=== PATIENT | female | born 1955 | race Caucasian/White ===

== ENCOUNTER 2018-03-07 09:26 | Emergency (ER) | payer MEDICAID ==
[2018-03-07] MEDS ORDERED: Cyclobenzaprine 10 MG Tab PO ONE (09:27)
[2018-03-07] MEDS ORDERED: Ketorolac 10 MG Tab PO ONE (09:27)
--- NOTE | 2018-03-07 10:00 | EDM.PDOC ---
ED HPI GENERAL MEDICAL PROBLEM - General Chief Complaint: Back Pain or Injury Stated Complaint: back pain Time Seen by Provider: 03/07/18 09:59 Source of Information: Reports: Patient History Limitations: Reports: No Limitations - History of Present Illness INITIAL COMMENTS - FREE TEXT/NARRATIVE: Jelena is a 62 year old female who presents to the ED with c/o mid back pain/ muscle spasm. She reports starting around 9 pm last night she had sudden sharp pain to her mid back, worse on the right side. Does report that the pain radiates down her right leg at times. Denies numbness or tingling. She reports the pain down her leg also feels like a muscle spasm. She reports it feels like a bad muscle spasm. She denies any other symptoms. Denies chest pain, abdominal pain, shortness of breath, fever, chills, urinary symptoms, hematuria. Denies any history of kidney stones. She reports she tried Tylenol throughout the night , but this did not help the pain. She does report she has chronic back pain, but has never had pain like this. She reports she has mostly been lying on her back or stomach. Has not been walking much. She denies any loss of bowel or bladder. Denies any weakness in her legs. Onset Date: 03/06/18 Onset Time: 21:00 Duration: Constant Location: Reports: Back (mid) Quality: Reports: Other (spasm, sharp) Severity: Severe Improves with: Reports: None Worsens with: Reports: Movement Context: Reports: Activity Associated Symptoms: Denies: Confusion, Chest Pain, Cough, cough w sputum, Diaphoresis, Fever/Chills, Headaches, Loss of Appetite, Malaise, Nausea/Vomiting , Rash, Seizure, Shortness of Breath, Syncope, Weakness Treatments SALES DRIVER: Reports: Acetaminophen Right Middle Back Pain Score (Numeric/FACES): 7 - Related Data Allergies Allergy/AdvReac Type Severity Reaction Status Date / Time codeine Allergy Vomiting Verified 03/07/18 09:29 Home Meds: Home Meds Acetaminophen [Tylenol Arthritis Pain] 1,500 mg PO Q4H PRN 02/18/14 [History] Omeprazole 20 mg PO BID 02/18/14 [History] Losartan/Hydrochlorothiazide [Losartan-HCTZ 100-25 MG] 1 each PO DAILY 12/09/14 [History] Cyclobenzaprine [Flexeril] 10 mg PO Q8H #30 tablet 03/07/18 [Rx] Ketorolac Tromethamine 10 mg PO Q8HR PRN #20 tablet 03/07/18 [Rx] Past Medical History Cardiovascular History: Reports: Hypertension Respiratory History: Reports: Sleep Apnea Gastrointestinal History: Reports: GERD Endocrine/Metabolic History: Reports: Obesity/BMI 30+ - Past Surgical History GI Surgical History: Reports: Hernia, Abdominal Social & Family History - Family History Family Medical History: Noncontributory - Tobacco Use Smoking Status *Q: Never Smoker - Recreational Drug Use Recreational Drug Use: No ED ROS GENERAL - Review of Systems Review Of Systems: ROS reveals no pertinent complaints other than HPI. ED EXAM,LOWER BACK PAIN/INJURY - Physical Exam Exam: See Below Exam Limited By: No Limitations General Appearance: Alert, WD/WN, No Apparent Distress Back Exam: Decreased Range of Motion, Other (kyphosis, scoliosis). No: Paraspinal Tenderness, Vertebral Tenderness Extremities: Normal Inspection, Normal Range of Motion, Non-Tender, No Pedal Edema, Normal Capillary Refill Neurological: Alert, Normal Mood/Affect, Normal Dorsiflexion, CN II-XII Intact, Normal Plantar Flexion, Normal Gait, Normal Reflexes, No Motor/Sensory Deficits , Oriented x 3 Psychiatric: Normal Affect, Normal Mood Skin Exam: Warm, Dry, Intact, Normal Color, No Rash Course - Vital Signs Last Recorded V/S: Last Vital Signs Temp 97.8 F 03/07/18 09:26 Pulse 85 03/07/18 09:26 Resp 20 03/07/18 09:26 BP 154/82 H 03/07/18 09:42 Pulse Ox 98 03/07/18 09:26 - Orders/Labs/Meds Orders: Active Orders 24 hr Category Date Time Status Thoracolumbar 2V [CR] Stat Exams 03/07/18 09:38 Taken Meds: Medications Discontinued Medications Generic Name Dose Route Start Last Admin Trade Name Freq PRN Reason Stop Dose Admin Cyclobenzaprine HCl 1 packet 03/07/18 11:29 03/07/18 11:32 Take Home: Cyclobenzaprine 10 Mg, 4 Tab Pack PO 03/07/18 11:30 1 packet ONETIME ONE Administration Ketorolac Tromethamine 1 packet 03/07/18 11:29 03/07/18 11:32 Take Home: Ketorolac 10 Mg, 4 Tab Pack PO 03/07/18 11:30 1 packet ONETIME ONE Administration Orphenadrine Citrate 60 mg 03/07/18 10:30 Norflex IM Q12H KURT Orphenadrine Citrate 60 mg 03/07/18 10:26 03/07/18 10:30 Norflex IM 03/07/18 10:27 60 mg ONETIME ONE Administration - Re-Assessments/Exams Free Text/Narrative Re-Assessment/Exam: Xrays on thoracolumbar show 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 There is severe multilevel degenerative changes with kyphosis of the lower thoracic spine. No evidence of acute findings or fracture seen. Departure - Departure Time of Disposition: 11:29 Disposition: Home, Self-Care 01 Condition: Fair Clinical Impression: Spasm of thoracolumbar muscle - Discharge Information Prescriptions: Ketorolac Tromethamine 10 mg PO Q8HR PRN #20 tablet PRN Reason: Pain Cyclobenzaprine [Flexeril] 10 mg PO Q8H #30 tablet Instructions: Muscle Cramps and Spasms, [id number], Chronic Back Pain Referrals: Suresh Deras MD [Primary Care Provider] - Forms: ED Department Discharge Additional Instructions: Toradol every 8 hours as needed for pain Flexeril every 8 hours as needed for muscle spasm Apply heat to affected area. May also alternate with ice. MRI of thoracic spine scheduled for March 23 at 9:45 am. Will notify you of MRI results once completed Strongly encourage diet and exercise for weight loss to alleviate back pain Follow up if back pain worsens or is not controlled with pain medications - My Orders Last 24 Hours: My Active Orders 03/07/18 09:38 Thoracolumbar 2V [CR] Stat - Assessment/Plan Last 24 Hours: My Active Orders 03/07/18 09:38 Thoracolumbar 2V [CR] Stat
[2018-03-07] MEDS ORDERED: Take Home: Ketorolac 10 MG Tab, 4 Tab Pack PO ONE (11:29)
[2018-03-07] MEDS ORDERED: Take Home: Cyclobenzaprine 10 MG Tab, 4 Tab Pack PO ONE (11:29)
[2018-03-07 14:16] VITALS: BP 154/82
== END 2018-03-07 12:15 | disposition home or self-care (01) ==
LOC: CC.ED 09:26
DX: M62.830 Muscle spasm of back (principal); I10 Essential (primary) hypertension; K21.9 Gastro-esophageal reflux disease without esophagitis; Z88.5 Allergy status to narcotic agent; Z79.899 Other long term (current) drug therapy
CPT/HCPCS: 72080; 96372; 99283; A9270; J2360

== ENCOUNTER → 2018-11-04 | Day surgery (SDC) | payer MEDICAID ==
[~2018-11-04] MED LIST: Dexamethasone 4 MG/ML SDV IV ONE; Glycopyrrolate 0.2 MG/ML SDV IVPUSH ONE; Neostigmine Methylsulfate 10 MG/10 ML MDV IV ONE; Ondansetron 4 MG/2 ML SDV IV ONE; Ondansetron 4 MG/2 ML SDV IVPUSH PRN; Propofol 200 MG/20 ML SDV IV ONE; Sodium Chloride 0.9% 10 ML Syringe FLUSH PRN; ceFAZolin 1 GM Vial IV ONE; fentaNYL 100 MCG/2 ML SDV IV ONE
[2018-11-04] MEDS: Lactated Ringers 1,000 ML IV SCH ×2 (08:50→13:09)
--- NOTE | 2018-11-04 15:41 | OR ---
DATE OF OPERATION: 11/04/2018 PREOPERATIVE DIAGNOSIS: 1. CHRONICALLY INFECTED WITH NECROSIS, UMBILICAL SKIN. 2. LARGE UMBILICAL HERNIA. POSTOPERATIVE DIAGNOSIS: 1. CHRONICALLY INFECTED WITH NECROSIS, UMBILICAL SKIN. 2. LARGE UMBILICAL HERNIA. SURGEON: Adal Thompson MD PROCEDURE: WIDE LOCAL EXCISION OF UMBILICAL SKIN AND REPAIR OF UMBILICAL HERNIA. ANESTHESIA: General. ESTIMATED BLOOD LOSS: Minimum. SPECIMEN: Umbilical hernia sac and skin. 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 Multiple maneuvers and treatments have been done preoperatively over the last 6 months to improve this and she still has chronic drainage and obvious necrosis of some of the skin. Due to her obesity and the fact of the umbilicus being contaminated, I discussed with her the plan to excise this necrotic skin area and then repair the umbilical hernia. DESCRIPTION OF PROCEDURE: After adequate preparation, an elliptical incision was made around the umbilicus. This was carried down into the subcutaneous tissue. This was then taken all the way down to the fascia where the hernia was protruding through about a 2 cm opening. The umbilical hernia sac was dissected free from the surrounding subcutaneous tissue and then the skin of the overlying umbilicus was detached from the hernia sac. The hernia sac was then opened. I was not able to reduce this without opening the sac and the sac was then taken off the contents, which contained only omentum. Hemostasis was controlled. The omentum was reduced back into the peritoneal cavity and the defect closed by interrupted 0 Prolene sutures, reinforced by double-stranded #1 PDS suture. I did not use mesh in this hernia repair as the defect was only 2 cm and I was concerned with contamination secondary to the umbilical necrosis and chronic infection and as previously thought this might have been a ventral hernia, was difficult to locate secondary to her size, but this turns out to be an umbilical hernia, not a ventral hernia. The omental contents were reduced adequately and the wound closed sufficiently. The cavity was irrigated with saline and cleaned up. Hemostasis was secured. The subcutaneous tissue was closed with 0 Vicryl sutures and 4-0 Vicryl in cuticular for the skin. The patient tolerated the procedure well. ABIMBOLA/HEYDI /[id number]
[2018-11-04] MEDS: Acetaminophen/oxyCODONE 325-5 MG Tab PO PRN ×2 (16:04→19:53)
[2018-11-05] MEDS: Acetaminophen/oxyCODONE 325-5 MG Tab PO PRN ×2 (00:27→08:13)
[2018-11-05 07:56] VITALS: BP 150/69
--- NOTE | 2018-11-05 08:54 | PCM.SN ---
- Free Text/Narrative Note: Stable POD #1. Pain well controlled with PO meds. Wound clean and dry. PO diet tolerated. Ambulated well. DC instructions given. Will place on Keflex for a week and Percocet for pain (#15) given. FU in my clinic if needed. Resume home meds and activity. Can discharge now.
== END | disposition home or self-care (01) ==
LOC: CC.SDS 08:02
PROVIDERS: ATTEND Surgery
DX: K42.1 Umbilical hernia with gangrene (principal); M95.8 Other specified acquired deformities of musculoskeletal system; I10 Essential (primary) hypertension; E78.5 Hyperlipidemia, unspecified; E66.01 Morbid (severe) obesity due to excess calories; Z68.43 Body mass index [BMI] 50.0-59.9, adult; J18.9 Pneumonia, unspecified organism; K21.9 Gastro-esophageal reflux disease without esophagitis; Z87.891 Personal history of nicotine dependence; Z79.899 Other long term (current) drug therapy; Z88.8 Allergy status to other drugs, medicaments and biological substances; Z88.5 Allergy status to narcotic agent; Z88.1 Allergy status to other antibiotic agents
CPT/HCPCS: A9270-GY; J0690; J1100; J2405; J2704; J2710; J3010; J3490; J7120

== ENCOUNTER 2018-11-08 15:32 | Observation (INO) | payer MEDICAID ==
[2018-11-08 16:06] LABS: CHLORIDE,CL 98 mEq/L (98-106); SODIUM,NA 140 mEq/L (136-145)
[2018-11-08] MEDS ORDERED: Sodium Chloride 0.9% 10 ML Syringe FLUSH PRN (16:42)
[2018-11-08] MEDS ORDERED: Docusate Sodium 100 MG Cap PO PRN (16:42)
[2018-11-08] MEDS ORDERED: Ondansetron 4 MG Tab.DIS PO PRN (16:42)
[2018-11-08] MEDS ORDERED: Enoxaparin 40 MG/0.4 ML Syringe SUBCUT SCH (16:45)
[2018-11-08] MEDS ORDERED: Cyclobenzaprine 10 MG Tab PO PRN (17:27)
[2018-11-08] MEDS ORDERED: ALENDRONATE SODIUM 70 MG PO SCH (17:30)
[2018-11-08] MEDS: Sodium Chloride 0.45% with KCl 1,000 ML IV SCH (17:33)
[2018-11-08] MEDS: OMEPRAZOLE 20 MG PO SCH (19:46)
[2018-11-08] MEDS: Albuterol/Ipratropium 3.0-0.5 MG/3 ML Neb Soln NEB SCH (19:50)
[2018-11-08] MEDS ORDERED: ROSUVASTATIN CALCIUM 10 MG PO SCH (20:00)
[2018-11-08] MEDS: Ibuprofen 200 MG Tab PO PRN (20:16)
[2018-11-08] MEDS: Acetaminophen 325 MG Tab PO PRN (20:16)
[2018-11-09] MEDS: Acetaminophen 325 MG Tab PO PRN (06:31)
[2018-11-09] MEDS: Ibuprofen 200 MG Tab PO PRN (06:31)
[2018-11-09] MEDS: Sodium Chloride 0.45% with KCl 1,000 ML IV SCH (07:24)
[2018-11-09] MEDS ORDERED: Psyllium Husk Powder Sugar Free 5.85 GM Packet PO SCH (08:00)
[2018-11-09] MEDS ORDERED: LOSARTAN PO SCH (08:00)
[2018-11-09] MEDS ORDERED: DILTIAZEM 120 MG PO SCH (08:00)
[2018-11-09] MEDS ORDERED: HYDROCHLOROTHIAZIDE PO SCH (08:00)
[2018-11-09] MEDS: Albuterol/Ipratropium 3.0-0.5 MG/3 ML Neb Soln NEB SCH (08:05)
[2018-11-09] MEDS: OMEPRAZOLE 20 MG PO SCH (08:05)
[2018-11-09 08:07] VITALS: BP 148/85
--- NOTE | 2018-11-09 22:46 | PCM.DCSUM1 ---
Discharge Summary - Hospital Course Free Text/Narrative:: Patient presented to clinic for 4 day history of increased shortness of breath, cough and wheezing. Had outpatient umbilical hernia last week by Dr. Thompson. Running low grade temps. Oxygen sats noted in low 90s. Wheezing noted throughout on exam. Chest xray done by Dr. Deras did show post op atelectasis. Labs done, WBC 7.4, CRP 1.8. ProBNP normal. Admitted for incentive spirometry , oxygen as needed. Obtain CTA of chest to rule out PE. Nebs as directed. Diagnosis: Stroke: No Modified Arabella Scale: No Symptoms at All Modified Barrow Scale Score: 0 - Discharge Data Discharge Date: 11/09/18 Discharge Disposition: Home, Self-Care 01 Condition: Good - Patient Summary/Data Complications: none Hospital Course: Patient doing well. Does continue to feel short of breath with exertion. Staff had noted improvement of her breathing after use of incentive spirometry. Does have occasional expiratory wheezing but was also noted on documentation prior to surgery. CTA of chest was done was negative for PE. Patient relates did not sleep well at hospital, does feel she could continue with nebs and IS at home. Ambulation as tolerated. Sats have remained above 90%. Afebrile. Will continue with IS at home, nebs QID for one week, continue Zithromax 500 mg daily for 5 day. Follow up with Arelis next week. - Patient Instructions Diet: Usual Diet as Tolerated Activity: As Tolerated - Discharge Plan *PRESCRIPTION DRUG MONITORING PROGRAM REVIEWED*: No *COPY OF PRESCRIPTION DRUG MONITORING REPORT IN PATIENT TONY: No Prescriptions/Med Rec: Albuterol/Ipratropium [DuoNeb 3.0-0.5 MG/3 ML] 3 ml NEB QIDRT #28 neb Azithromycin [Zithromax] 500 mg PO DAILY #5 tab Home Medications: Home Meds Omeprazole 20 mg PO BID 02/18/14 [History] Losartan/Hydrochlorothiazide [Losartan-HCTZ 100-25 MG] 1 each PO DAILY 12/09/14 [History] Acetaminophen [Arthritis Pain Relief] 650 mg PO Q4H PRN 11/04/18 [History] Alendronate Sodium 70 mg PO MO 11/04/18 [History] Calcium Carb & Citrate/Vit D3 [Citracal + D ER] 2 each PO BID 11/04/18 [History] Cholecalciferol (Vitamin D3) [Vitamin D3] 6,000 unit PO DAILY 11/04/18 [History] Cyclobenzaprine [Flexeril] 10 mg PO Q8H PRN 11/04/18 [History] Diltiazem HCl [Cartia Xt] 120 mg PO DAILY 11/04/18 [History] Ibuprofen [Advil] 200 mg PO Q4H PRN 11/04/18 [History] Magnesium 250 mg PO DAILY 11/04/18 [History] Psyllium Husk [Metamucil] 1 scoop PO DAILY 11/04/18 [History] Rosuvastatin Calcium 10 mg PO BEDTIME 11/04/18 [History] Vitamin B Complex 1 each PO DAILY 11/04/18 [History] Albuterol/Ipratropium [DuoNeb 3.0-0.5 MG/3 ML] 3 ml NEB QIDRT #28 neb 11/09/18 [ Rx] Azithromycin [Zithromax] 500 mg PO DAILY #5 tab 11/09/18 [Rx] Referrals: Arelis Mclaughlin [employer] SEATING PRESS OPERATOR [Primary Care Provider] - (Follow up with Arelis in one week) - Discharge Summary/Plan Comment DC Time >30 min.: No - General Info Date of Service: 11/09/18 Admission Dx/Problem (Free Text: Shortness of Breath Post OP Atelectasis Functional Status: Reports: Pain Controlled, Tolerating Diet, Ambulating - Review of Systems General: Reports: Weakness HEENT: Reports: No Symptoms Pulmonary: Reports: Shortness of Breath, Cough, Wheezing Cardiovascular: Denies: Chest Pain Gastrointestinal: Denies: Abdominal Pain, Nausea, Vomiting Genitourinary: Reports: No Symptoms Musculoskeletal: Reports: No Symptoms Neurological: Reports: No Symptoms - Patient Data Vitals - Most Recent: Last Vital Signs Temp 98.3 F 11/09/18 08:00 Pulse 83 11/09/18 08:05 Resp 18 11/09/18 08:00 BP 148/85 H 11/09/18 08:05 Pulse Ox 95 11/09/18 08:00 Weight - Most Recent: 276 lb 9.6 oz I&O - Last 24 hours: Intake & Output 11/09/18 11/09/18 11/09/18 06:59 14:59 22:59 Intake Total 1000 Balance 1000 Lab Results - Last 24 hrs: Laboratory Results - last 24 hr 11/08/18 11/09/18 Range/Units 15:39 07:05 Sodium 141 (136-145) mEq/L Potassium 3.9 (3.5-5.0) mEq/L Chloride 100 (98-106) mEq/L Carbon Dioxide 31 (21-32) mmol/L BUN 13 (7-18) mg/dL Creatinine 1.1 H (0.6-1.0) mg/dL Est Cr Clr Drug Dosing 38.58 mL/min Estimated GFR (MDRD) 50 L (>=60) mL/min Glucose 124 H (75-99) mg/dL Calcium 8.8 (8.4-10.1) mg/dL Urine Color Yellow (YELLOW) Urine Appearance Clear (CLEAR) Urine pH 5.5 (4.5-8.0) Ur Specific Ke[place] <= 1.005 (1.003-1.020) Urine Protein Negative (NEGATIVE) mg/dL Urine Glucose (UA) Negative (NEGATIVE) mg/dL Urine Ketones Negative (NEGATIVE) mg/dL Urine Occult Blood Negative (NEGATIVE) Urine Nitrite Negative (NEGATIVE) Urine Bilirubin Negative (NEGATIVE) Urine Urobilinogen 0.2 (0.2-1.0) EU/dL Ur Leukocyte Esterase Moderate H (NEGATIVE) Urine RBC Not seen (0-5) /HPF Urine WBC 10-20 H (0-5) /HPF Ur Squamous Epith Cells Moderate H (NOT SEEN) /HPF Urine Bacteria Occasional H (NOT SEEN) /HPF Med Orders - Current: Current Medications Discontinued Medications Acetaminophen (Tylenol) 650 mg PO Q4H PRN PRN Reason: Pain Last Admin: 11/09/18 06:31 Dose: 650 mg Albuterol/Ipratropium (Duoneb 3.0-0.5 Mg/3 Ml) 3 ml NEB QIDRT [facility] [place] Last Admin: 11/09/18 08:05 Dose: 3 ml Cyclobenzaprine HCl (Flexeril) 10 mg PO Q8H PRN PRN Reason: Muscle Spasm Diltiazem HCl (Cardizem Cd) 120 mg PO DAILY [facility] [place] Last Admin: 11/09/18 08:05 Dose: 120 mg Docusate Sodium (Colace) 100 mg PO BID PRN PRN Reason: Constipation Enoxaparin Sodium (Lovenox) 40 mg SUBCUT 1600 [facility] [place] Last Admin: 11/08/18 17:28 Dose: 40 mg Potassium Chloride/Sodium Chloride (1/2 Ns With 20 Meq Kcl) 1,000 mls @ 75 mls/ hr IV ASDIRECTED [facility] [place] Last Admin: 11/09/18 07:24 Dose: 75 mls/hr Ibuprofen (Motrin) 200 mg PO Q4H PRN PRN Reason: Pain/Fever Last Admin: 11/09/18 06:31 Dose: 200 mg Magnesium Oxide (Magnesium Oxide) 250 mg PO DAILY [facility] [place] Last Admin: 11/09/18 08:08 Dose: 250 mg Non-Formulary Medication (Alendronate Sodium [Alendronate Sodium]) 70 mg PO MO [facility] [place] Ptom Losartan/Hydrochlorothiazide 100-25 Mg 1 each PO DAILY [facility] [place] Last Admin: 11/09/18 08:04 Dose: 1 each Ptom Omeprazole (20 Mg) 20 mg PO BID [facility] [place] Last Admin: 11/09/18 08:05 Dose: 20 mg Ptom Rosuvastatin Calcium 10 Mg 10 mg PO BEDTIME [facility] [place] Last Admin: 11/08/18 19:46 Dose: 10 mg Ondansetron HCl (Zofran Odt) 8 mg PO Q6H PRN PRN Reason: nausea, able to take PO Psyllium Husk (Metamucil Sugar Free) 1 pkt PO DAILY [facility] [place] Last Admin: 11/09/18 08:08 Dose: 1 pkt Sodium Chloride (Saline Flush) 10 ml FLUSH ASDIRECTED PRN PRN Reason: Keep Vein Open - Exam General: Reports: Alert, Oriented HEENT: Reports: Mucous Membr. Moist/[place] Neck: Reports: Supple Lungs: Reports: Decreased Breath Sounds, Wheezing (improves with nebulizer treatment) Cardiovascular: Reports: Regular Rate, Regular Rhythm GI/Abdominal Exam: Normal Bowel Sounds, Soft, Non-Tender Skin: Reports: Warm, Dry Neurological: Reports: No New Focal Deficit
== END 2018-11-09 11:10 | disposition home or self-care (01) ==
LOC: CC.FCMC 15:32 → CC.MS 15:32 → UNDOADMOB 16:15 → CC.MS 16:42
PROVIDERS: ADMIT Family Medicine; ATTEND Family Medicine
DX: J95.89 Other postprocedural complications and disorders of respiratory system, not elsewhere classified (principal); J98.11 Atelectasis; I10 Essential (primary) hypertension; E66.01 Morbid (severe) obesity due to excess calories; Z68.43 Body mass index [BMI] 50.0-59.9, adult; Z79.899 Other long term (current) drug therapy; Z88.8 Allergy status to other drugs, medicaments and biological substances; Z88.1 Allergy status to other antibiotic agents
CPT/HCPCS: 36415; 71046; 71275; 80048; 80053; 81001; 83735; 83880; 84484; 85025; 86140; 87086; 87804; 93005; 94640; 96360; 96361; 96372; A9270; G0378; J1650; J3480; Q9967; J7620-GY

== ENCOUNTER → 2022-03-06 | Day surgery (SDC) | payer MEDICARE, MEDICAID ==
[~2022-03-06] MED LIST changes: -Dexamethasone 4 MG/ML SDV IV ONE; -Glycopyrrolate 0.2 MG/ML SDV IVPUSH ONE; +Ketamine 200 MG/20 ML MDV ONE; +Lactated Ringers 1,000 ML IV SCH; +Metoclopramide 10 MG/2 ML SDV ONE; -Neostigmine Methylsulfate 10 MG/10 ML MDV IV ONE; -Ondansetron 4 MG/2 ML SDV IV ONE; -Ondansetron 4 MG/2 ML SDV IVPUSH PRN; +Phenylephrine 1% 10 MG/ML SDV ONE; -Propofol 200 MG/20 ML SDV IV ONE; +Propofol 200 MG/20 ML SDV ONE; -Sodium Chloride 0.9% 10 ML Syringe FLUSH PRN; -ceFAZolin 1 GM Vial IV ONE; -fentaNYL 100 MCG/2 ML SDV IV ONE; +fentaNYL 100 MCG/2 ML SDV ONE
[2022-03-06] MEDS: Lactated Ringers 1,000 ML IV SCH (09:20)
[2022-03-06 11:17] VITALS: PULSE 70
[2022-03-06 11:20] VITALS: BP 155/84
== END ==
LOC: CC.SDS 09:05
PROVIDERS: ATTEND Surgery
DX: K57.31 Diverticulosis of large intestine without perforation or abscess with bleeding (principal); K64.8 Other hemorrhoids; R13.10 Dysphagia, unspecified; K44.9 Diaphragmatic hernia without obstruction or gangrene; D64.9 Anemia, unspecified; K21.9 Gastro-esophageal reflux disease without esophagitis; E78.5 Hyperlipidemia, unspecified; I10 Essential (primary) hypertension; E66.01 Morbid (severe) obesity due to excess calories; G47.33 Obstructive sleep apnea (adult) (pediatric); E11.9 Type 2 diabetes mellitus without complications; M85.80 Other specified disorders of bone density and structure, unspecified site; Z88.8 Allergy status to other drugs, medicaments and biological substances; Z88.5 Allergy status to narcotic agent; Z79.899 Other long term (current) drug therapy; Z87.891 Personal history of nicotine dependence; Z68.43 Body mass index [BMI] 50.0-59.9, adult
CPT/HCPCS: 82947; J2370; J2704; J2765; J3010; J7120

== ENCOUNTER 2023-04-29 08:31 | Inpatient (IN) | payer MEDICARE, MEDICAID ==
[2023-04-29 09:21] LABS: BASOPHILS ABSOLUTE AUTO 0.01 10^3/uL (0.00-0.50); BASOPHILS PERCENT AUTO 0.1 % (0-1); EOSINOPHILS ABSOLUTE AUTO 0.01 10^3/uL (0.00-1.50); EOSINOPHILS PERCENT AUTO 0.1 % (0-6); HEMATOCRIT 36.5 % (37.0-47.0); HEMOGLOBIN 12.4 g/dL (12.0-16.0); IMMATURE GRAN ABSOLUTE AUTO 0.01 10^3/uL (0.00-0.49); IMMATURE GRAN PERCENT AUTO 0.1 % (0.0-4.9); LYMPHOCYTES ABSOLUTE AUTO 1.84 10^3/uL (0.60-5.00); LYMPHOCYTES PERCENT AUTO 25.3 % (24-44); MEAN CORPUSCULAR HEMOGLOBIN 27.4 pg (27.0-32.0); MEAN CORPUSCULAR VOLUME 80.8 fL (83.0-97.0); MONOCYTES ABSOLUTE AUTO 0.56 10^3/uL (0.00-1.50); MONOCYTES PERCENT AUTO 7.7 % (0-10); NEUTROPHILS ABSOLUTE AUTO 4.85 x10^3/uL (1.80-8.00); NEUTROPHILS PERCENT AUTO 66.7 % (41-71); PLATELET COUNT,PLT 253 10^3/uL (150-400); RED BLOOD CELL COUNT 4.52 x10^6/uL (4.00-5.50); WHITE BLOOD CELL COUNT,WBC 7.3 10^3/uL (4.0-11.0)
[2023-04-29 09:34] LABS: ALBUMIN 3.6 g/dL (3.4-5.0); BILIRUBIN TOTAL 0.4 mg/dL (0.0-1.0); EST CRCL DRUG DOSING (CG) 39.75 mL/min; POTASSIUM,K 3.2 mEq/L (3.5-5.0); PROTEIN TOTAL,TP 7.7 g/dL (6.4-8.2)
[2023-04-29 09:36] LABS: CALCIUM 6.9 mg/dL (8.4-10.1)
[2023-04-29 10:14] LABS: MAGNESIUM 0.5 mg/dL (1.8-2.4); TSH ULTRASENSITIVE 3.64 uIU/mL (0.36-5.60)
[2023-04-29] MEDS ORDERED: Potassium Chloride 10 MEQ Tab.ER PO ONE (11:10)
[2023-04-29] MEDS ORDERED: Albuterol/Ipratropium 3.0-0.5 MG/3 ML Neb Soln NEB PRN (11:10)
[2023-04-29] MEDS ORDERED: Ondansetron 4 MG/2 ML SDV IV PRN (11:18)
[2023-04-29] MEDS ORDERED: Magnesium Sulfate/Water 4 GM in Premix Bag 1 BAG IV ONE (11:18)
[2023-04-29] MEDS ORDERED: Calcium Gluconate 1 GM in Sodium Chloride 0.9% 100 ML IV STA (11:18)
[2023-04-29] MEDS ORDERED: Sodium Chloride 0.9% 10 ML Syringe FLUSH PRN (11:18)
[2023-04-29] MEDS: Sodium Chloride 0.9% 1,000 ML IV SCH ×2 (11:38→19:59)
[2023-04-29 17:16] LABS: CALCIUM 7.2 mg/dL (8.4-10.1); EST CRCL DRUG DOSING (CG) 39.75 mL/min; POTASSIUM,K 3.7 mEq/L (3.5-5.0)
[2023-04-29] MEDS: Carvedilol 12.5 MG Tab PO SCH (17:26)
[2023-04-29] MEDS: Calcium Carbonate/Vitamin D3 1250 MG-5 MCG Tab PO SCH (17:27)
[2023-04-29] MEDS: metFORMIN 500 MG Tab PO SCH (17:27)
[2023-04-29] MEDS: Enoxaparin 40 MG/0.4 ML Syringe SUBCUT SCH (19:03)
[2023-04-29] MEDS: atorvaSTATin 20 MG Tab PO SCH (19:03)
[2023-04-29] MEDS: Acetaminophen 325 MG Tab PO PRN (19:36)
[2023-04-29] MEDS: Ondansetron 4 MG Tab.DIS PO PRN (19:59)
[2023-04-29] MEDS ORDERED: Simvastatin 40 MG Tab PO SCH (20:00)
[2023-04-30] MEDS: Pantoprazole 40 MG Tab.CR PO SCH (06:26)
[2023-04-30 07:07] LABS: BASOPHILS ABSOLUTE AUTO 0.02 10^3/uL (0.00-0.50); BASOPHILS PERCENT AUTO 0.3 % (0-1); EOSINOPHILS ABSOLUTE AUTO 0.01 10^3/uL (0.00-1.50); EOSINOPHILS PERCENT AUTO 0.1 % (0-6); HEMATOCRIT 35.9 % (37.0-47.0); HEMOGLOBIN 11.9 g/dL (12.0-16.0); IMMATURE GRAN ABSOLUTE AUTO 0.01 10^3/uL (0.00-0.49); IMMATURE GRAN PERCENT AUTO 0.1 % (0.0-4.9); LYMPHOCYTES ABSOLUTE AUTO 1.74 10^3/uL (0.60-5.00); LYMPHOCYTES PERCENT AUTO 25.1 % (24-44); MEAN CORPUSCULAR HEMOGLOBIN 27.2 pg (27.0-32.0); MEAN CORPUSCULAR HGB CONC 33.1 g/dL (32.0-36.0); MEAN CORPUSCULAR VOLUME 82.2 fL (83.0-97.0); MONOCYTES ABSOLUTE AUTO 0.65 10^3/uL (0.00-1.50); MONOCYTES PERCENT AUTO 9.4 % (0-10); PLATELET COUNT,PLT 239 10^3/uL (150-400); RED BLOOD CELL COUNT 4.37 x10^6/uL (4.00-5.50); WHITE BLOOD CELL COUNT,WBC 6.9 10^3/uL (4.0-11.0)
[2023-04-30] MEDS: Acetaminophen 325 MG Tab PO PRN ×2 (07:11→13:07)
[2023-04-30] MEDS: Ondansetron 4 MG Tab.DIS PO PRN (07:11)
[2023-04-30] MEDS: Sodium Chloride 0.9% 1,000 ML IV SCH (07:13)
[2023-04-30] MEDS: Carvedilol 12.5 MG Tab PO SCH ×2 (07:42→17:24)
[2023-04-30] MEDS: Vitamin B Complex Cap PO SCH (07:43)
[2023-04-30] MEDS: Cholecalciferol (Vitamin D3) 5,000 UNIT Tab PO SCH (07:43)
[2023-04-30] MEDS: metFORMIN 500 MG Tab PO SCH ×2 (07:43→17:24)
[2023-04-30] MEDS: Losartan 100 MG Tab PO SCH (07:43)
[2023-04-30] MEDS: Hydrochlorothiazide 25 MG Tab PO SCH (07:43)
[2023-04-30] MEDS: Calcium Carbonate/Vitamin D3 1250 MG-5 MCG Tab PO SCH ×2 (07:44→17:24)
[2023-04-30 07:47] LABS: CALCIUM 7.6 mg/dL (8.4-10.1); CREATININE 0.8 mg/dL (0.6-1.0); EST CRCL DRUG DOSING (CG) 49.69 mL/min; MAGNESIUM 1.6 mg/dL (1.8-2.4); POTASSIUM,K 3.5 mEq/L (3.5-5.0)
[2023-04-30] MEDS ORDERED: Psyllium Husk Powder Sugar Free 5.85 GM Packet PO SCH (08:00)
[2023-04-30] MEDS ORDERED: Magnesium Sulfate/Water 2 GM in Premix Bag 1 BAG IV ONE (09:18)
[2023-04-30] MEDS: atorvaSTATin 20 MG Tab PO SCH (19:56)
[2023-04-30] MEDS: Enoxaparin 40 MG/0.4 ML Syringe SUBCUT SCH (19:56)
[2023-05-01] MEDS: Sodium Chloride 0.9% 1,000 ML IV SCH (06:09)
[2023-05-01] MEDS: Pantoprazole 40 MG Tab.CR PO SCH (06:12)
[2023-05-01 07:29] LABS: BASOPHILS ABSOLUTE AUTO 0.02 10^3/uL (0.00-0.50); BASOPHILS PERCENT AUTO 0.4 % (0-1); EOSINOPHILS ABSOLUTE AUTO 0.01 10^3/uL (0.00-1.50); EOSINOPHILS PERCENT AUTO 0.2 % (0-6); HEMATOCRIT 31.7 % (37.0-47.0); HEMOGLOBIN 10.6 g/dL (12.0-16.0); IMMATURE GRAN ABSOLUTE AUTO 0.01 10^3/uL (0.00-0.49); IMMATURE GRAN PERCENT AUTO 0.2 % (0.0-4.9); LYMPHOCYTES ABSOLUTE AUTO 2.13 10^3/uL (0.60-5.00); LYMPHOCYTES PERCENT AUTO 38.1 % (24-44); MEAN CORPUSCULAR HEMOGLOBIN 27.7 pg (27.0-32.0); MEAN CORPUSCULAR HGB CONC 33.4 g/dL (32.0-36.0); MONOCYTES ABSOLUTE AUTO 0.55 10^3/uL (0.00-1.50); MONOCYTES PERCENT AUTO 9.8 % (0-10); NEUTROPHILS ABSOLUTE AUTO 2.87 x10^3/uL (1.80-8.00); NEUTROPHILS PERCENT AUTO 51.3 % (41-71); PLATELET COUNT,PLT 213 10^3/uL (150-400); RED BLOOD CELL COUNT 3.82 x10^6/uL (4.00-5.50); WHITE BLOOD CELL COUNT,WBC 5.6 10^3/uL (4.0-11.0)
[2023-05-01] MEDS: metFORMIN 500 MG Tab PO SCH (07:44)
[2023-05-01] MEDS: Hydrochlorothiazide 25 MG Tab PO SCH (07:44)
[2023-05-01] MEDS: Vitamin B Complex Cap PO SCH (07:45)
[2023-05-01] MEDS: Cholecalciferol (Vitamin D3) 5,000 UNIT Tab PO SCH (07:46)
[2023-05-01] MEDS: Losartan 100 MG Tab PO SCH (07:46)
[2023-05-01] MEDS: Carvedilol 12.5 MG Tab PO SCH (07:46)
[2023-05-01 07:47] VITALS: BP 129/69; PULSE 70
[2023-05-01] MEDS: Calcium Carbonate/Vitamin D3 1250 MG-5 MCG Tab PO SCH (07:47)
[2023-05-01 08:06] LABS: CALCIUM 8.6 mg/dL (8.4-10.1); CREATININE 0.8 mg/dL (0.6-1.0); EST CRCL DRUG DOSING (CG) 49.69 mL/min; MAGNESIUM 1.6 mg/dL (1.8-2.4); POTASSIUM,K 3.5 mEq/L (3.5-5.0)
== END 2023-05-01 11:15 | disposition home or self-care (01) | DRG 641 ==
LOC: CC.ED 08:31 → CC.MS 10:24 → UNDOADMIN 10:24 → CC.MS 10:56 → UNDOADMIN 10:56 → CC.MS 10:57
PROVIDERS: ADMIT Nurse Practitioner Family; ATTEND Nurse Practitioner Family
DX: E87.6 Hypokalemia (principal); Z68.43 Body mass index [BMI] 50.0-59.9, adult; E83.51 Hypocalcemia; E83.42 Hypomagnesemia; R20.2 Paresthesia of skin; R94.31 Abnormal electrocardiogram [ECG] [EKG]; I10 Essential (primary) hypertension; E78.00 Pure hypercholesterolemia, unspecified; K21.9 Gastro-esophageal reflux disease without esophagitis; M81.0 Age-related osteoporosis without current pathological fracture; G47.30 Sleep apnea, unspecified; Z88.1 Allergy status to other antibiotic agents; Z88.5 Allergy status to narcotic agent; Z88.8 Allergy status to other drugs, medicaments and biological substances; E66.9 Obesity, unspecified; Z79.84 Long term (current) use of oral hypoglycemic drugs; Z98.890 Other specified postprocedural states; Z79.899 Other long term (current) drug therapy
CPT/HCPCS: 36415; 80048; 80053; 82306; 83735; 83970; 84443; 85025; 93005; 93010; 99223; 99233; 99238; 99285; A9270-GY; J0612; J1650; J3475; J3490; J7030